=== PATIENT | female | born 1980 | race Caucasian/White ===

== ENCOUNTER 2022-11-16 00:19 | Day surgery (SDC) | payer OTHER, SELFPAY ==
[2022-11-11 15:00] VITALS: BMI 31.2
[2022-11-16 07:18] VITALS: BP 121/46; PULSE 48; RESP 18; TEMP 36.1; O2SAT 100; BMI 30.9
[2022-11-16] MEDS: LACTATED RINGERS 1,000 ML 150 ML IV CONT (07:35)
--- NOTE | 2022-11-16 08:03 | PM.HPGS ---
History of Present Illness History of Present Illness Consent: Risks, benefits, and alternatives have been discussed and questions answered. Patient agrees to proceed with procedure. Chief complaint: neoplasm screening, family hx of colon cancer Narrative: Nidia Pickett is a 42 year old female Presents for screening colonoscopy. Patient's family history is significant that mother and father have had colon polyps. Two grandparents have had colon cancer. Patient presents today for neoplasia screening. She reports that her own bowel habits are normal with no blood or pain. Review of Systems Review of Systems: Physical exam reveals patient to be alert. Vital signs stable. HEENT exam is unremarkable. Patient is anicteric. Lungs are clear to auscultation and percussion. Heart is without murmur or extra sounds. Abdomen bowel sounds are present soft nontender with no organomegaly. Digital external rectal exam is normal. [facility] Social History Social History Smoking status: Current every day smoker Tobacco type: cigarettes Alcohol intake: current Substance use: never Living arrangements: with family Spiritual care concerns: No Meds Home Medications and Allergies Home Medications Medication Instructions Recorded Confirmed Type escitalopram oxalate 20 mg tablet 20 mg PO DAILY 11/11/22 11/11/22 History Allergies Allergy/AdvReac Type Severity Reaction Status Date / Time No Known Allergies Allergy Verified 11/16/22 07:17 Vital Signs Vital Signs - 24 hr 11/16/22 07:18 Temperature 97.0 F L Pulse Rate 48 L Respiratory Rate 18 Blood Pressure 121/46 L Pulse Oximetry 100 Oxygen Delivery Room Air Assessment and Plan Assessment and plan (1) Family history of colonic polyps: Code(s): Z83.71 - Family history of colonic polyps Status: Acute Assessment and Plan: Patient has a family history of colon polyps in both parents as well as colon cancer in a grandparent. Plan for surveillance colonoscopy now and at 5 year intervals in the future.
--- NOTE | 2022-11-16 08:19 | WPDANESEPPF ---
Anes - Initial Pre Proc Eval Procedure: Operation Date: 11/16/22 08:30 Proposed Procedures p Screening Colonoscopy - Chace Guerrero MD Date/Time: 11/16/22 08:19 Surgeon: Chace Guerrero MD Pre Op Diagnosis: neoplasm screening, family hx of colon cancer Patient Data Age: 42 Gender: F Height: 1.55 m Weight: 74.1 kg Last Vital Signs Temp 97.0 F L 11/16/22 07:18 Pulse 48 L 11/16/22 07:18 Resp 18 11/16/22 07:18 BP 121/46 L 11/16/22 07:18 Pulse Ox 100 11/16/22 07:18 O2 Del Method Room Air 11/16/22 07:18 Allergies Allergy/AdvReac Type Severity Reaction Status Date / Time No Known Allergies Allergy Verified 11/16/22 07:17 Home Medications Medication Instructions Recorded Confirmed Type escitalopram oxalate 20 mg tablet 20 mg PO DAILY 11/11/22 11/11/22 History Patient hx anesthesia problems: none Family hx anesthesia problems: none Results Review: All pre-operative results and documents have been reviewed as part of the pre-operative evaluation. [facility] Social History Social History Smoking status: Current every day smoker Tobacco type: cigarettes Alcohol intake: current Substance use: never Living arrangements: with family Spiritual care concerns: No Anes - Eval Final PreProcedure Day of Procedure 11/16/22 08:19 Patient weight: normal Heart: regular rate and rhythm Lungs: clear to auscultation Airway: Mallampati scale class II Neurological: alert and oriented Last oral intake: >/= 8 hours ASA classification: II Emergent: no Anesthetic plan: proceed Anesthesia type and monitoring: general GIVS and standard monitoring Results Review: All pre-operative results and documents have been reviewed as part of the pre-operative evaluation. Informed Consent: The patient's anesthetic plan and its attendant risks and benefits were discussed with the patient/family/POA. Questions were solicited and answers provided to the satisfaction of the patient/family/POA.
[2022-11-16 08:55] VITALS: BP 100/57; PULSE 54; RESP 22; O2SAT 98
[2022-11-16 09:05] VITALS: BP 104/67; PULSE 66; RESP 22; O2SAT 98
[2022-11-16 09:15] VITALS: BP 102/65; PULSE 55; RESP 20; O2SAT 98
== END 2022-11-16 09:26 | disposition home or self-care (01) ==
PROVIDERS: Visit Provider Internal Medicine Gastroenterology
PROC: 0DJD8ZZ Inspection of Lower Intestinal Tract, Via Natural or Artificial Opening Endoscopic (ICD-10-PCS; CPT 45378; principal; 2022-11-16 08:30)
DX: Z12.11 Encounter for screening for malignant neoplasm of colon (principal); K64.8 Other hemorrhoids; Z83.71 Family history of colonic polyps; F17.210 Nicotine dependence, cigarettes, uncomplicated
CPT/HCPCS: 45378; J2704; J7120